=== PATIENT | female | born 1955 | race Asian ===

== ENCOUNTER → 2018-12-21 | Outpatient (CLI) | payer OTHER ==
[~2018-12-21] MED LIST: AMLO-511 PO; ASPI-556 PO; CALC-895 PO; HYDR25TA PO; LOSA25TA41 PO; OMEG-53 PO; SIMV-260 PO
== END | disposition home or self-care (01) ==
LOC: RADPV 10:59
PROVIDERS: ATTEND Family Medicine
DX: M85.88 Other specified disorders of bone density and structure, other site (principal)
CPT/HCPCS: 77080

== ENCOUNTER → 2019-01-22 | Outpatient (CLI) | payer OTHER ==
[~2019-01-22] MED LIST changes: -AMLO-511 PO; +AMLO5TAB9 PO
== END | disposition home or self-care (01) ==
LOC: RADPV 12:32
PROVIDERS: ATTEND Family Medicine
DX: M25.511 Pain in right shoulder (principal); M25.512 Pain in left shoulder

== ENCOUNTER → 2019-08-27 | Outpatient (CLI) | payer MEDICARE, OTHER ==
[~2019-08-27] MED LIST changes: +HYDR-1475 PO; -HYDR25TA PO; -LOSA25TA41 PO; +LOSA25TA71 PO
== END | disposition home or self-care (01) ==
LOC: RADMN 09:47
PROVIDERS: ATTEND Physician Assistant
DX: M75.102 Unspecified rotator cuff tear or rupture of left shoulder, not specified as traumatic (principal)
CPT/HCPCS: 73221

== ENCOUNTER → 2020-08-15 | Outpatient (CLI) | payer MEDICARE, OTHER ==
[~2020-08-15] MED LIST changes: +AMLO-257 PO; -AMLO5TAB9 PO; -HYDR-1475 PO; +HYDR25TA2 PO; +LOSA25TA21 PO; -LOSA25TA71 PO
== END | disposition home or self-care (01) ==
LOC: RADPV 09:49
PROVIDERS: ATTEND Family Medicine
DX: M47.26 Other spondylosis with radiculopathy, lumbar region (principal); M43.16 Spondylolisthesis, lumbar region; M48.061 Spinal stenosis, lumbar region without neurogenic claudication; M54.30 Sciatica, unspecified side
CPT/HCPCS: 72100

== ENCOUNTER 2022-03-03 06:25 | Day surgery (SDC) | payer MEDICARE, OTHER ==
[2022-03-02 13:39] LABS: COVID AG,FIA SOURCE NASAL SWAB
[~2022-03-03] VITALS: Ht 157.5 cm; Wt 66.8 kg
[~2022-03-03 06:25] MED LIST changes: +ASPI-1444 PO; -ASPI-556 PO; +BEMP180T PO; +CALC-1209 PO; -CALC-895 PO; +CHOL200074 PO; +EZET10TA57 PO; -HYDR25TA2 PO; -LOSA25TA21 PO; +LOVA20TA73 PO; +LUTE1CAP5 PO; +METF-1211 PO; +PSYL0.4C2 PO; -SIMV-260 PO; +VALS160T2 PO
[2022-03-03] MEDS ORDERED: SODIUM CHLORIDE 0.9% 1,000 ML IV ONE (06:30)
[2022-03-03] MEDS ORDERED: SODIUM CHLORIDE 0.9% 1,000 ML ONE (07:02)
[2022-03-03 08:01] LABS: GLUCOMETER DEV NAME(LOC) SDS.; GLUCOSE,POINT OF CARE 140 MG/DL (70-110)
[2022-03-03] MEDS ORDERED: PROPOFOL 1% 20 ML VIAL IVP ONE (12:00)
[2022-03-03] MEDS ORDERED: LIDOCAINE/PF 2% 5 ML VIAL IM ONE (12:00)
[2022-03-03] MEDS ORDERED: OXYGEN THERAPY IH SCH (20:00)
== END 2022-03-03 10:12 | disposition home or self-care (01) ==
LOC: SURGERY 06:25
PROVIDERS: ATTEND Specialist
DX: Z12.11 Encounter for screening for malignant neoplasm of colon (principal); K63.5 Polyp of colon; I10 Essential (primary) hypertension; E78.00 Pure hypercholesterolemia, unspecified; Z20.822 Contact with and (suspected) exposure to COVID-19; Z79.84 Long term (current) use of oral hypoglycemic drugs; Z79.899 Other long term (current) drug therapy; Z82.49 Family history of ischemic heart disease and other diseases of the circulatory system; Z80.42 Family history of malignant neoplasm of prostate
CPT/HCPCS: 87426; 45385; 82962; 88305; C9803; C1769; J2704; J3490; J7030